=== PATIENT | male | born 1955 | race Caucasian/White ===

== ENCOUNTER 2017-11-19 10:52 | Outpatient (CLI) | payer MEDICARE ==
[2017-11-19 12:39] LABS: #Basophils 0.1 thou/uL (0.0-0.2); #Eosinphils 0.2 thou/uL (0.0-0.7); #Lymphocytes 1.2 thou/uL (1.20-3.40); #Monocytes 0.8 thou/uL (0.11-0.59); #Neutrophils 5.9 thou/uL (1.40-6.50); %Basophils 0.8 % (0.0-1.0); %Lymphocytes 14.3 % (21.0-51.0); %Monocytes 10.1 % (0.0-10.0); %Neutrophils 72.7 % (42.0-75.0); Hemoglobin 15.2 g/dL (14.0-18.0); Mean Corpuscular HGB CONC 32.9 g/dL (32.0-36.0); Mean Corpuscular Hemoglobin 30.9 pg (27.0-31.0); Mean Corpuscular Volume 93.9 fl (80.0-94.0); Mean Platelet Volume 9.4 fL (7.4-10.4); Platelet Count 291 thou/uL (130-400); RBC Distribution Width 11.8 % (11.5-14.5); Red Blood Cell (RBC) Count 4.92 mill/uL (4.70-6.10); White Blood Cell (WBC) Count 8.1 thou/uL (4.8-10.8)
[2017-11-19 13:02] LABS: Anion Gap 12 mmol/L (10-20); BUN (Urea Nitrogen) 11 mg/dL (8.4-25.7); Calc. Creatinine Clearance 0 mL/min (70-130); Calcium 9.4 mg/dL (7.8-10.44); Carbon Dioxide 24 mmol/L (23-31); Chloride 104 mmol/L (98-107); Estimated GFR-MDRD 78; Glucose 128 mg/dL (80-115); Potassium 4.1 mmol/L (3.5-5.1); Sodium 136 mmol/L (136-145)
--- NOTE | 2017-11-21 18:32 | EKG ---
Test Reason : Blood Pressure : / mmHG Vent. Rate : 073 BPM Atrial Rate : 073 BPM P-R Int : 168 ms QRS Dur : 086 ms QT Int : 406 ms P-R-T Axes : 025 020 029 degrees QTc Int : 447 ms Normal sinus rhythm Possible Anterior infarct , age undetermined Abnormal ECG No previous ECGs available Confirmed by CHRISTY LOYOLA, DR. Chaparro ([id number]) on 11/21/2017 6:32:31 PM Referred By: TODD Confirmed By:DR. Shankar HARRISON MD
== END 2017-11-19 10:53 | disposition home or self-care (01) ==
LOC: LABBT 10:52
PROVIDERS: ATTEND Surgery
DX: Z01.818 Encounter for other preprocedural examination (principal); K60.3 Anal fistula
CPT/HCPCS: 80048; 85025; 93005; 93010

== ENCOUNTER 2017-11-20 09:33 | Day surgery (SDC) | payer MEDICARE ==
[2017-11-19 11:10] VITALS: BMI 28.8
[2017-11-20] MEDS ORDERED: Lidocaine 2% Jelly 5 ML TUBE ONE (10:45)
[2017-11-20] MEDS ORDERED: Bupivacaine/Epinephrine 0.25% 30 ML VIAL ONE (10:45)
[2017-11-20] MEDS ORDERED: Fentanyl 250 MCG/5 ML VIAL ONE (12:13)
[2017-11-20] MEDS ORDERED: Midazolam HCl 2 mg/2 ml Vial ONE (12:13)
--- NOTE | 2017-11-20 17:07 | OP ---
DATE OF PROCEDURE: 11/20/2017 PREOPERATIVE DIAGNOSIS: [id number]. POSTOPERATIVE DIAGNOSIS: [id number]. PROCEDURE PERFORMED: Fistulotomy with Seton placement. SURGEON: Deandre Ochoa ANESTHESIA: General. ESTIMATED BLOOD LOSS: Minimal. COMPLICATIONS: None. SPECIMEN: None. FINDINGS: Transsphincteric fistula. TECHNIQUE: The patient was taken to the operating room and placed supine on the table. After genera l anesthetic was obtained, he was placed in the lithotomy position. His perineum is prepped and drap ed in a sterile fashion. Local anesthetic was infiltrated at the external drain and site. Fistula p robe used to probe from the external to the internal opening. The internal opening is right at the 6 o'clock position. The external opening is approximately at the 4 o'clock position. Unfortunately, the fistula goes behind the sphincter muscle. Decision is made to place a cutting Seton. An 0 silk suture is wrapped around and tied to the inside portion of the probe, pulled out the outside hole and tied down in a loop. This was tied down fairly snug on the outside of the fistulous opening. This will slowly erode through the muscle and allow it to heal. There is no bleeding. Local anesthetic i s applied. The patient was en route to recovery in stable condition. All instrument counts, needle counts, lap counts were correct.
== END 2017-11-20 14:15 | disposition home or self-care (01) ==
LOC: SDC 09:33
PROVIDERS: ATTEND Surgery
PROC: 0HB9XZZ Excision of Perineum Skin, External Approach (ICD-10-PCS; principal; 2017-11-20)
DX: K60.3 Anal fistula (principal); Z88.8 Allergy status to other drugs, medicaments and biological substances; Z79.84 Long term (current) use of oral hypoglycemic drugs; Z79.899 Other long term (current) drug therapy
CPT/HCPCS: J2250; J3010; Q9968

== ENCOUNTER 2018-01-20 08:13 | Outpatient (CLI) | payer MEDICARE ==
[2018-01-20 09:33] LABS: Anion Gap 13 mmol/L (10-20); BUN (Urea Nitrogen) 7 mg/dL (8.4-25.7); Calc. Creatinine Clearance 0 mL/min (70-130); Calcium 9.8 mg/dL (7.8-10.44); Carbon Dioxide 28 mmol/L (23-31); Chloride 106 mmol/L (98-107); Estimated GFR-MDRD 86; Glucose 102 mg/dL (80-115); Potassium 4.7 mmol/L (3.5-5.1); Sodium 142 mmol/L (136-145)
[2018-01-20 09:38] LABS: #Basophils 0.1 thou/uL (0.0-0.2); #Eosinphils 0.2 thou/uL (0.0-0.7); #Lymphocytes 1.2 thou/uL (1.20-3.40); #Monocytes 0.7 thou/uL (0.11-0.59); #Neutrophils 6.8 thou/uL (1.40-6.50); %Basophils 0.6 % (0.0-1.0); %Eosinophils 1.7 % (0.0-10.0); %Lymphocytes 13.4 % (21.0-51.0); %Monocytes 7.8 % (0.0-10.0); %Neutrophils 76.4 % (42.0-75.0); Mean Corpuscular HGB CONC 32.6 g/dL (32.0-36.0); Mean Corpuscular Volume 92.1 fl (80.0-94.0); Mean Platelet Volume 8.6 fL (7.4-10.4); Platelet Count 314 thou/uL (130-400); RBC Distribution Width 11.9 % (11.5-14.5); White Blood Cell (WBC) Count 8.8 thou/uL (4.8-10.8)
== END 2018-01-20 08:14 | disposition home or self-care (01) ==
LOC: LABBT 08:13
PROVIDERS: ATTEND Surgery
DX: Z01.812 Encounter for preprocedural laboratory examination (principal); K60.3 Anal fistula
CPT/HCPCS: 80048; 85025

== ENCOUNTER 2018-01-21 08:03 | Day surgery (SDC) | payer MEDICARE ==
[2018-01-20 08:45] VITALS: BMI 29.5
[2018-01-21] MEDS ORDERED: Lidocaine 2% Jelly 5 ML TUBE ONE (09:01)
[2018-01-21] MEDS ORDERED: Bupivacaine/Epinephrine 0.25% 30 ML VIAL ONE (09:01)
[2018-01-21] MEDS ORDERED: Fentanyl 100 MCG/2 ML VIAL ONE ×2 (09:02→10:42)
[2018-01-21] MEDS ORDERED: CEFAZOLIN/Water 2 GM/20 ML SYRINGE ONE (09:06)
[2018-01-21] MEDS ORDERED: cefOXitin 2 GM VIAL ONE (09:07)
[2018-01-21] MEDS ORDERED: Sodium Chloride 0.9% 100 ML ONE (09:07)
--- NOTE | 2018-01-21 10:35 | OP ---
DATE OF PROCEDURE: 01/21/2018 PREOPERATIVE DIAGNOSIS: Anal fistula, transsphincteric. POSTOPERATIVE DIAGNOSIS: Anal fistula, transsphincteric. PROCEDURES PERFORMED: Staged fistulotomy with Seton placement for transsphincteric fistula. SURGEON: Bayron Ochoa M.D. ANESTHESIA: General. ESTIMATED BLOOD LOSS: Minimal. COMPLICATIONS: None. SPECIMEN: None. FINDINGS: The fistula is not quite as long to the perianal skin, but it still is transsphincteric, S eton is replaced and tightened. TECHNIQUE: The patient was taken to the operating room and placed supine on the table. After genera l anesthetic was obtained, he was placed in lithotomy position. Perineum area was prepped and draped in a sterile fashion. Previously placed Seton was used to place a fistula probe from outside to ins michael opening. The anal mucosa was opened on top of it. The trans-sphincter was still involved with t he fistula tract, so decision was made to replace the 0 silk suture. The old suture removed. A new silk was placed and it was tightened down tied against the exposed sphincter muscle. Meticulous hemo stasis obtained and anal canal was packed with Gelfoam and lidocaine jelly. The patient went to [facility] in stable condition. All sponge counts, needle counts, and lap counts are correct.
[2018-01-21] MEDS ORDERED: Metoclopramide HCl 10 MG/2 ML VIAL ONE (13:21)
[2018-01-21] MEDS ORDERED: Ketorolac Tromethamine 30 MG/ML VIAL ONE (13:21)
[2018-01-21] MEDS ORDERED: PROPOFOL 200 MG/20 ML VIAL ONE (13:21)
[2018-01-21] MEDS ORDERED: Dexamethasone 20 MG/5 ML VIAL ONE (13:21)
[2018-01-21] MEDS ORDERED: Ondansetron HCl/PF 4 MG/2 ML Vial ONE (13:21)
[2018-01-21] MEDS ORDERED: diphenhydrAMINE 50 MG/ML VIAL ONE (13:21)
[2018-01-21] MEDS ORDERED: Lidocaine 1% PF 5 ML VIAL ONE (13:21)
== END 2018-01-21 11:51 | disposition home or self-care (01) ==
LOC: SDC 08:03
PROVIDERS: ATTEND Surgery
PROC: 0DQQXZZ Repair Anus, External Approach (ICD-10-PCS; principal; 2018-01-21)
DX: K60.3 Anal fistula (principal); F32.9 Major depressive disorder, single episode, unspecified; F41.9 Anxiety disorder, unspecified; E78.5 Hyperlipidemia, unspecified; E11.51 Type 2 diabetes mellitus with diabetic peripheral angiopathy without gangrene; I11.9 Hypertensive heart disease without heart failure; F17.200 Nicotine dependence, unspecified, uncomplicated; Z86.73 Personal history of transient ischemic attack (TIA), and cerebral infarction without residual deficits; Z79.82 Long term (current) use of aspirin; Z79.84 Long term (current) use of oral hypoglycemic drugs; Z79.899 Other long term (current) drug therapy; Z88.8 Allergy status to other drugs, medicaments and biological substances
CPT/HCPCS: 96374; J0694; J3010; J7050

== ENCOUNTER 2018-04-15 11:57 | Outpatient (CLI) | payer MEDICARE ==
[2018-04-15 14:03] LABS: Bilirubin Negative (Negative); Blood, Urine Negative (Negative); Clarity CLEAR (Clear); Glucose, Urine (Dipstick) Negative (Negative); Leukocyte Negative (Negative); Nitrite Negative (Negative); Protein, Urine (Dipstick) Negative (Neg-Trace); Specific Gravity, Urine 1.005 (1.002-1.036); Urobilinogen 0.2 mg/dL (0.2-1.0)
[2018-04-15 14:05] LABS: Bacteria/HPF None Seen HPF (None Seen); Hyaline Casts/LPF 0-3 HYALINE CAST LPF (0-3 Hyaline); Pathc Cast-AUWi Flag 0.14 (0-2.49); RBC/HPF 0-3 HPF (0-3); Squamous Epithelial None Seen HPF (0-3); WBC/HPF None Seen HPF (0-3)
--- NOTE | 2018-04-16 06:19 | EKG ---
Test Reason : Blood Pressure : / mmHG Vent. Rate : 065 BPM Atrial Rate : 065 BPM P-R Int : 176 ms QRS Dur : 086 ms QT Int : 450 ms P-R-T Axes : 030 040 018 degrees QTc Int : 468 ms Normal sinus rhythm Possible Anterior infarct (cited on or before 15-APR-2018) vs poor R wave progression Abnormal ECG When compared with ECG of 19-NOV-2017 10:40, No significant change was found Confirmed by YAW FLORES ([id number]) on 04/16/2018 6:18:56 AM Referred By: DARRYL Confirmed By:YAW FLORES
== END 2018-04-15 11:58 | disposition home or self-care (01) ==
LOC: LABBT 11:57
PROVIDERS: ATTEND Orthopaedic Surgery
DX: Z01.818 Encounter for other preprocedural examination (principal); M17.11 Unilateral primary osteoarthritis, right knee; M17.12 Unilateral primary osteoarthritis, left knee
CPT/HCPCS: 81001; 87081; 93005; 93010

== ENCOUNTER 2018-04-26 05:34 | Inpatient (IN) | payer MEDICARE ==
[2018-04-26] MEDS ORDERED: CEFAZOLIN/Water 2 GM/20 ML SYRINGE ONE (06:05)
[2018-04-26] MEDS ORDERED: Sodium Chloride 0.9% 100 ML ONE (06:05)
[2018-04-26] MEDS ORDERED: Fentanyl 250 MCG/5 ML VIAL ONE (06:11)
[2018-04-26] MEDS ORDERED: Vancomycin HCl 1.5 GM in Sodium Chloride 0.9% 250 ML 300 ML IVPB SCH ×2 (06:15→20:00)
[2018-04-26] MEDS ORDERED: Fentanyl 100 MCG/2 ML VIAL ONE (06:30)
[2018-04-26] MEDS ORDERED: Midazolam HCl 2 mg/2 ml Vial ONE (06:30)
[2018-04-26] MEDS ORDERED: Bupivacaine HCl 0.5%/Epinephrine 1:200,000/PF 30 ml Vial ONE (06:31)
[2018-04-26] MEDS ORDERED: Lidocaine 1% (PF) 30 ML VIAL ONE (06:37)
[2018-04-26] MEDS ORDERED: Bupivacaine PF 0.5% 30 ML VIAL ONE (06:37)
[2018-04-26] MEDS ORDERED: methylPREDNISolone Acetate 40 mg/ml Vial ONE (06:52)
[2018-04-26] MEDS ORDERED: Zolpidem Tartrate 5 MG TAB PO PRN ×2 (07:40→09:07)
[2018-04-26] MEDS ORDERED: traMADol HCl 50 MG TAB PO PRN ×3 (07:40→09:07)
[2018-04-26] MEDS ORDERED: Promethazine HCl 25 MG/ML VIAL IM PRN ×2 (07:40→08:51)
[2018-04-26] MEDS ORDERED: Ropivacaine HCl/PF 250 ML in Premix Bag 1 BAG NERVE BLCK SCH (07:40)
[2018-04-26] MEDS ORDERED: Fentanyl 100 MCG/2 ML VIAL IV PRN (07:40)
[2018-04-26] MEDS ORDERED: Ondansetron HCl/PF 4 MG/2 ML Vial IVP PRN ×3 (07:40→09:07)
[2018-04-26] MEDS ORDERED: HYDROcodone/Acetaminophen 10/325 mg Tablet PO PRN (07:40)
[2018-04-26] MEDS ORDERED: Promethazine HCl 25 MG/ML VIAL SLOW IVP PRN (08:51)
[2018-04-26] MEDS ORDERED: Acetaminophen 325 MG TAB PO PRN (09:07)
[2018-04-26] MEDS ORDERED: Tranexamic Acid 1,000 MG in Sodium Chloride 0.9% 100 ML IVPB SCH (09:15)
--- NOTE | 2018-04-26 09:33 | OP ---
DATE OF PROCEDURE: 04/26/2018 PREOPERATIVE DIAGNOSIS: Bilateral knee osteoarthrosis, right worse than left. POSTOPERATIVE DIAGNOSIS: Bilateral knee osteoarthrosis, right worse than left. PROCEDURES PERFORMED: 1. Right total knee replacement using [employer] pinless navigation. 2. Left knee corticosteroid injection. SURGEON: Alfredo Claros M.D. SCREW DRIVER OPERATOR: Greg Etienne PA-C. BLOOD LOSS: Minimal. COMPLICATIONS: None. ANESTHESIA: He had general anesthetic. He also had preoperative blocks. DISPOSITION: He did go to the recovery room in stable condition. IMPLANTS: To the right knee is a Triathlon total knee system, the femur was a size 6 cruciate retain ing. We used a size 5 universal tibial baseplate. We used a 5 x 9 mm CS X3 tibial bearing and an as ymmetric 35 x 10 X3 patella. CONDITION: He did go again recovery in stable condition. INDICATIONS: A 62-year-old active male who has significant issues and problems with bilateral knee a rthritis. At this time, he has failed nonoperative treatment and wished to have his right knee repla emilie and the left knee injected. PROCEDURE IN DETAIL: After above consent forms were explained and signed, he was taken back to the o perating room and at this time was given general anesthetic. Once anesthesia was appropriate, the le ft knee was cleaned off with alcohol and 8 mL mixture of 80 mg Depo-Medrol and local was injected int o the left knee without any complication. A Band-Aid was applied. Midline incision was made with a 1 0 blade down through the skin and subcutaneous tissue. Bovie electrocautery was used to coagulate any brisk venous bleeding. A new blade was used to make a medial parapatellar arthrotomy. Small subperio steal release was performed medially and excess fat pad was removed. The knee was flexed up to gain a ccess to the femur. The femur was navigated and distal femoral resection was made. Epicondylar access was used to align our sizing jig and this was pinned in place. We sized our femur to be a size 6 cru ciate retaining 4:1 cutting block was applied and pinned. Anterior and posterior chamfer cuts were th en made. We navigated out our proximal tibia and made our proximal tibial resection. Spreaders were u sed to remove any posterior osteophytes off the back of the femur as well as remaining meniscal tissu e. A long alignment robert was then used to achieve correct rotation of our tibial baseplate and a size 5 universal was chosen. This was pinned in place. We trialed the polyethylene and a 5 x 9 mm CS X3 ti bial bearing polyethylene gave us full extension and good stability throughout range of motion. Two t owel clips and a saw were used to cut our patella. Three lug nuts were drilled and an asymmetric 35 x 10 X3 patella was trialed which sat nicely in the trochlear groove. We then drilled our femur and pu nched our tibia. All components were removed. The knee was thoroughly irrigated and dried. Cement was mixed into the cement gun on the back table. Components were then placed. The knee was held out in f ull extension until the cement had dried. All excess bone cement was removed. Multiple #2 Vicryl sti tches as well as a Quill was used to close our extensor mechanism. 0 Quill followed by a running [employer] [facility] was then used to close the skin. Surgicel glue was then used on the skin. Once this had dried, s oft tissue dressing was applied to the limb, tourniquet was let down, and the toes pinked up nicely. The patient was then awakened and taken to the Recovery Room in stable condition. All counts were co rrect at the end of the case. The patient did receive preoperative IV antibiotics. The patient was i njected with Exparel for postoperative pain relief.
[2018-04-26 11:17] VITALS: BMI 29.5
[2018-04-26] MEDS: Sodium Chloride 0.9% 1,000 ML IV SCH ×2 (11:32→18:05)
[2018-04-26] MEDS: CEFAZOLIN/Water 2 GM/20 ML SYRINGE SLOW IVP SCH ×2 (14:47→22:34)
[2018-04-26] MEDS ORDERED: Dextrose 50% Abboject 50 ML SYRINGE SLOW IVP PRN (15:09)
[2018-04-26] MEDS ORDERED: HumaLOG 300 UNITS/3 ML VIAL SC PRN (15:09)
[2018-04-26] MEDS ORDERED: Dextrose 5% in Water 1,000 ML IV PRN (15:09)
[2018-04-26] MEDS: metFORMIN 500 MG TAB PO SCH (17:09)
[2018-04-26] MEDS: Glimepiride 4 MG TAB PO SCH (17:09)
--- NOTE | 2018-04-26 19:43 | CON ---
DATE OF CONSULTATION: 04/26/2018 CONSULTING PHYSICIAN: Dr. Claros. REASON FOR CONSULTATION: Perioperative medical management. HISTORY OF PRESENT ILLNESS: This patient is a 62-year-old male who has significant degenerative join t disease of both knees. His right is seemingly worse than the left. The patient reports that he hunter s been aggressively following the manual for preoperative management and has been trying to improve t he strength and flexibility of that knee and at this point, feels like he is doing very well immediat toni postoperatively. He is not having any significant pain. He has no other complaints. PAST MEDICAL HISTORY: Notable for degenerative joint disease. The patient has had some in both knee s. He has diabetes mellitus, has some attention deficit disorder, erectile dysfunction, history of d epression, history of anxiety disorder, history of hypertension, hyperlipidemia. PAST SURGICAL HISTORY: Cataract right eye, anal fistulectomy 10/2016, cataractectomy 2017. SOCIAL HISTORY: The patient is a nonsmoker and nondrinker. He is retired from construction. He is and his is around here. FAMILY HISTORY: Father of throat cancer. Mother of breast cancer. She also had a history of diabetes. ALLERGIES: INVOKANA. CURRENT MEDICATIONS: At home includes Xanax 0.5 every day, Celexa 20 mg every day, aspirin 1 p.o. da constantine, donepezil 10 mg at bedtime, metformin 500 mg b.i.d., and glimepiride 4 mg b.i.d. PHYSICAL EXAMINATION: VITAL SIGNS: Temperature is 97.9, pulse 108, respirations 18, O2 sat 94% on room air, BP 138/96. GENERAL APPEARANCE: Age appropriate male. He is in no distress. He is awake, alert, oriented, plea nathan and cooperative. HEENT: Pupils are symmetric, but constricted at 1-2 mm. He has no OP lesions. NECK: Supple and symmetric. HEART: Regular rate and rhythm without murmurs, gallops or rubs. LUNGS: Clear to auscultation bilaterally with good chest wall expansion and air exchange. ABDOMEN: Soft, nontender, nondistended, positive bowel sounds. No masses and no organomegaly. EXTREMITIES: Warm and dry. The right lower extremity has a postop brace. He has good peripheral pu lses distal to that. LABORATORY DATA: Laboratory data from 03/2018, white count was 8.6, hemoglobin 16.2, platelets 273, INR 1.1. Chemistry is notable for A1c of 6.3, glucose 138, bilirubin was 1.9, AST 35. Remainder of the CMP was normal. UA was negative. ASSESSMENT AND PLAN: 1. Degenerative joint disease status post right knee arthroplasty and left knee steroid injection. The patient seems to be doing extremely well postoperatively. He worked diligently to get himself pr epared for the surgery and appears to be paying off for him now. 2. Diabetes mellitus. The patient can resume his usual home oral medications. We will order Accu-C heks and sliding scale, just as a safety net for hyperglycemia. 3. History of anxiety and depression. Continue with Xanax and Celexa.
[2018-04-26] MEDS: Aspirin 81 mg Enteric Coated Tablet PO SCH (20:18)
[2018-04-26] MEDS: HYDROcodone/Acetaminophen 10/325 mg Tablet PO PRN (20:21)
[2018-04-26] MEDS ORDERED: Donepezil HCl 10 MG TAB PO SCH (21:00)
[2018-04-27] MEDS: Sodium Chloride 0.9% 1,000 ML IV SCH (04:01)
[2018-04-27] MEDS: HYDROcodone/Acetaminophen 10/325 mg Tablet PO PRN (05:37)
[2018-04-27 06:04] LABS: Hemoglobin 13.7 g/dL (14.0-18.0); Mean Corpuscular HGB CONC 33.1 g/dL (32.0-36.0); Mean Corpuscular Hemoglobin 30.4 pg (27.0-31.0); Mean Corpuscular Volume 91.7 fL (78.0-98.0); Mean Platelet Volume 8.6 fL (7.4-10.4); Platelet Count 272 thou/uL (130-400); White Blood Cell (WBC) Count 17.4 thou/uL (4.8-10.8)
[2018-04-27] MEDS ORDERED: Ferrous Gluconate 324 MG TAB PO SCH (08:00)
[2018-04-27] MEDS ORDERED: ALPRAZolam 0.25 MG TAB PO SCH (09:00)
[2018-04-27] MEDS ORDERED: Multivitamin W/ Minerals 1 TAB PO SCH (09:00)
[2018-04-27] MEDS ORDERED: Senokot S 8.6-50 MG TAB PO SCH (09:00)
[2018-04-27] MEDS ORDERED: Citalopram 20 MG TAB PO SCH (09:00)
[2018-04-27] MEDS ORDERED: CeleCOXIB 100 MG CAP PO SCH (09:00)
[2018-04-27] MEDS: metFORMIN 500 MG TAB PO SCH (09:45)
[2018-04-27] MEDS: Aspirin 81 mg Enteric Coated Tablet PO SCH (09:45)
[2018-04-27] MEDS: Glimepiride 4 MG TAB PO SCH (09:52)
[2018-04-27 11:50] VITALS: BP 121/78; TEMP 98.7
[2018-04-27] MEDS ORDERED: Ropivacaine 0.2% 550 ML 550 ML NERVE BLCK SCH (13:15)
== END 2018-04-27 14:53 | disposition home health service (06) | DRG 470 ==
LOC: SDC 05:34 → SJJU 10:38
PROVIDERS: ADMIT Orthopaedic Surgery; ATTEND Orthopaedic Surgery
PROC: 0SRC0J9 Replacement of Right Knee Joint with Synthetic Substitute, Cemented, Open Approach (ICD-10-PCS; principal; 2018-04-26)
DX: M17.0 Bilateral primary osteoarthritis of knee (principal); E11.9 Type 2 diabetes mellitus without complications; I10 Essential (primary) hypertension; F98.8 Other specified behavioral and emotional disorders with onset usually occurring in childhood and adolescence; F32.9 Major depressive disorder, single episode, unspecified; F41.9 Anxiety disorder, unspecified; E78.5 Hyperlipidemia, unspecified; N52.9 Male erectile dysfunction, unspecified; Z88.8 Allergy status to other drugs, medicaments and biological substances; Z79.899 Other long term (current) drug therapy; Z79.84 Long term (current) use of oral hypoglycemic drugs; Z79.82 Long term (current) use of aspirin; I11.9 Hypertensive heart disease without heart failure
CPT/HCPCS: 36415; 36416; 85027; A4306; C1713; C1776; G8978-GP-CK; G8979-GP-CI; J0670; J1030; J2001; J2250; J2795; J3010; J3370; J7050; S0020

== ENCOUNTER 2018-07-20 09:21 | Outpatient (CLI) | payer MEDICARE ==
[2018-07-20 10:58] LABS: #Eosinphils 0.2 thou/uL (0.0-0.7); #Lymphocytes 1.4 thou/uL (1.20-3.40); #Monocytes 0.8 thou/uL (0.11-0.59); #Neutrophils 6.9 thou/uL (1.40-6.50); %Basophils 0.4 % (0.0-1.0); %Eosinophils 1.9 % (0.0-10.0); %Lymphocytes 14.6 % (21.0-51.0); %Monocytes 9.1 % (0.0-10.0); Hemoglobin 15.9 g/dL (14.0-18.0); Mean Corpuscular HGB CONC 32.1 g/dL (32.0-36.0); Mean Corpuscular Hemoglobin 29.6 pg (27.0-31.0); Mean Corpuscular Volume 92.4 fL (78.0-98.0); Mean Platelet Volume 9.3 fL (7.4-10.4); Platelet Count 311 thou/uL (130-400); RBC Distribution Width 12.2 % (11.5-14.5); Red Blood Cell (RBC) Count 5.38 mill/uL (4.70-6.10); White Blood Cell (WBC) Count 9.3 thou/uL (4.8-10.8)
[2018-07-20 11:10] LABS: Prothrombin Time 13.7 SEC (12.0-14.7)
[2018-07-20 11:13] LABS: Anion Gap 12 mmol/L (10-20); BUN (Urea Nitrogen) 9 mg/dL (8.4-25.7); Calc. Creatinine Clearance 0 mL/min (70-130); Calcium 9.9 mg/dL (7.8-10.44); Carbon Dioxide 28 mmol/L (23-31); Chloride 104 mmol/L (98-107); Estimated GFR-MDRD 90; Glucose 119 mg/dL (80-115); Potassium 4.6 mmol/L (3.5-5.1); Sodium 139 mmol/L (136-145)
[2018-07-20 11:38] LABS: Bilirubin Negative (Negative); Blood, Urine Negative (Negative); Clarity CLEAR (Clear); Glucose, Urine (Dipstick) Negative (Negative); Leukocyte Negative (Negative); Nitrite Negative (Negative); Protein, Urine (Dipstick) Negative (Neg-Trace)
[2018-07-20 12:00] LABS: Bacteria/HPF None Seen HPF (None Seen); Hyaline Casts/LPF NONE SEEN LPF (0-3 Hyaline); RBC/HPF None Seen HPF (0-3); Squamous Epithelial 0-3 HPF (0-3); WBC/HPF None Seen HPF (0-3)
== END 2018-07-20 09:22 | disposition home or self-care (01) ==
LOC: LABBT 09:21
PROVIDERS: ATTEND Orthopaedic Surgery
DX: Z01.818 Encounter for other preprocedural examination (principal); M17.12 Unilateral primary osteoarthritis, left knee
CPT/HCPCS: 80048; 81001; 85025; 85610; 86850; 86900; 86901; 87081; 93005; 93010

== ENCOUNTER 2018-07-26 06:40 | Inpatient (IN) | payer MEDICARE ==
[2018-07-20 09:38] VITALS: BMI 29.6
[2018-07-26] MEDS ORDERED: CEFAZOLIN 2 GM/50 ML BAG ONE (07:06)
[2018-07-26] MEDS ORDERED: Sodium Chloride 0.9% 100 ML ONE (07:06)
[2018-07-26] MEDS ORDERED: Tranexamic Acid 1,000 MG/10 ML VIAL ONE ×2 (07:06→12:05)
[2018-07-26] MEDS ORDERED: Vancomycin HCl 1.5 GM in Sodium Chloride 0.9% 250 ML 300 ML IVPB SCH ×2 (07:15→19:00)
[2018-07-26] MEDS ORDERED: Fentanyl 100 MCG/2 ML VIAL ONE ×4 (07:28→10:37)
[2018-07-26] MEDS ORDERED: Midazolam HCl 2 mg/2 ml Vial ONE ×2 (07:28→09:19)
[2018-07-26] MEDS ORDERED: Bupivacaine PF 0.5% 30 ML VIAL ONE (09:14)
[2018-07-26] MEDS ORDERED: traMADol HCl 50 MG TAB PO PRN ×3 (09:39→11:40)
[2018-07-26] MEDS ORDERED: HYDROcodone/Acetaminophen 10/325 mg Tablet PO PRN (09:39)
[2018-07-26] MEDS ORDERED: Ropivacaine HCl/PF 250 ML in Premix Bag 1 BAG NERVE BLCK SCH (09:39)
[2018-07-26] MEDS ORDERED: Promethazine HCl 25 MG/ML VIAL IM PRN ×2 (09:39→11:40)
[2018-07-26] MEDS ORDERED: Ketorolac Tromethamine 30 MG/ML VIAL IVP PRN (09:39)
[2018-07-26] MEDS ORDERED: Zolpidem Tartrate 5 MG TAB PO PRN ×2 (09:39→11:40)
[2018-07-26] MEDS ORDERED: Ondansetron PF 4 MG/2 ML Vial IVP PRN ×2 (09:39→11:40)
[2018-07-26] MEDS ORDERED: Fentanyl 100 MCG/2 ML VIAL SLOW IVP PRN (09:39)
[2018-07-26] MEDS ORDERED: Acetaminophen 325 MG TAB PO PRN (11:40)
[2018-07-26] MEDS ORDERED: diphenhydrAMINE 25 MG CAP PO PRN (11:40)
[2018-07-26] MEDS ORDERED: Tranexamic Acid 1,000 MG in Sodium Chloride 0.9% 100 ML IVPB SCH (11:45)
[2018-07-26] MEDS ORDERED: Bupivacaine 0.25% HCL 30 ML VIAL ONE (12:15)
[2018-07-26] MEDS ORDERED: Ropivacaine 0.5% HCl/PF (150 MG/30 ML VIAL) ONE (12:15)
--- NOTE | 2018-07-26 12:36 | OP ---
PREOPERATIVE DIAGNOSIS: Left knee osteoarthrosis. POSTOPERATIVE DIAGNOSIS: Left knee osteoarthrosis. PROCEDURE PERFORMED: Left total knee replacement using [employer] pinless navigation. SURGEON: Alfredo Claros M.D. MARKETING UNDERWRITER: Enrrique Lanza PA-C. BLOOD LOSS: Minimal. ANESTHETIC: The patient did have a general anesthetic as well as a local knee block. CONDITION: He did go to the recovery room in stable condition. IMPLANTS: To the left knee is Triathlon total knee system, the femur was a size 6 cruciate retaining femur. We used a size 5 universal tibial baseplate. We used a 5 x 9 mm CS X3 tibial bearing and an asymmetric 29 x 9 X3 patella. INDICATIONS: A 63-year-old male who had his right knee replaced approximately 4 months ago and at th is time he wants his left knee replaced as well. PROCEDURE IN DETAIL: After all appropriate consent forms were explained and signed, the patient was taken back to the Operating Room and at this time was given general anesthetic. Once the level of an esthesia was appropriate, a well-padded tourniquet was placed on the left leg and the leg was then pr epped and draped in standard surgical fashion. The limb was exsanguinated and tourniquet taken up to 300 mmHg. Midline incision was made with a 10 blade down through the skin and subcutaneous tissue. Bovie electrocautery was used to coagulate any brisk venous bleeding. A new blade was used to make a medial parapatellar arthrotomy. Small subperiosteal release was performed medially and excess fat pad was removed. The knee was flexed up to gain access to the femur. The femur was navigated and di stal femoral resection was made. Epicondylar access was used to align our sizing jig and this was pi nned in place. We sized our femur to be a size 6 cruciate retaining femur, 4:1 cutting block was ward lied and pinned. Anterior and posterior chamfer cuts were then made. We navigated out our proximal tibia and made our proximal tibial resection. Spreaders were used to remove any posterior osteophyte s off the back of the femur as well as remaining meniscal tissue. A long alignment robert was then used to achieve correct rotation of our tibial baseplate and a size 5 universal tibial baseplate was chos en. This was pinned in place. We trialed the polyethylene and a 5 x 9 mm CS X3 tibial bearing polye thylene gave us full extension and good stability throughout range of motion. Two towel clips and a saw were used to cut our patella. Three lug nuts were drilled and 29 x 9 X3 patella was trialed whic h sat nicely in the trochlear groove. We then drilled our femur and punched our tibia. All componen ts were removed. The knee was thoroughly irrigated and dried. Cement was mixed into the cement gun o n the back table. Components were then placed. The knee was held out in full extension until the wanda ent had dried. All excess bone cement was removed. Multiple #2 Vicryl stitches as well as a Quill w as used to close our extensor mechanism. 0 Quill followed by a running Monoderm was then used to modesto se the skin. Surgicel glue was then used on the skin. Once this had dried, soft tissue dressing was applied to the limb, tourniquet was let down, and the toes pinked up nicely. The patient was then a wakened and taken to the Recovery Room in stable condition. All counts were correct at the end of e case. The patient did receive preoperative IV antibiotics. The patient was injected with Exparel for postoperative pain relief.
[2018-07-26] MEDS: HYDROcodone/Acetaminophen 10/325 mg Tablet PO PRN ×3 (13:40→21:55)
[2018-07-26] MEDS ORDERED: Ondansetron PF 4 MG/2 ML Vial ONE (13:59)
[2018-07-26] MEDS ORDERED: Lidocaine 1% PF 5 ML VIAL ONE (13:59)
[2018-07-26] MEDS ORDERED: Ketorolac Tromethamine 30 MG/ML VIAL ONE (13:59)
[2018-07-26] MEDS ORDERED: PROPOFOL 200 MG/20 ML VIAL ONE (13:59)
[2018-07-26] MEDS ORDERED: ePHEDrine/0.9% NaCl/PF SYRINGE 50 mg/10 ml ONE (13:59)
[2018-07-26] MEDS ORDERED: PHENYLEPHRINE-NS 100 MCG/ML 10 ML SYRINGE ONE (13:59)
[2018-07-26] MEDS: Sodium Chloride 0.9% 1,000 ML IV SCH ×2 (15:27→21:40)
[2018-07-26] MEDS: CEFAZOLIN 2 GM/50 ML BAG IVPB SCH ×2 (15:28→22:00)
[2018-07-26] MEDS ORDERED: Dextrose 50% Abboject 50 ML SYRINGE SLOW IVP PRN (16:31)
[2018-07-26] MEDS ORDERED: HumaLOG 300 UNITS/3 ML VIAL SC PRN ×2 (16:31)
[2018-07-26] MEDS ORDERED: Dextrose 5% in Water 1,000 ML IV PRN (16:31)
[2018-07-26] MEDS ORDERED: hydrALAZINE 25 MG TAB PO PRN (16:39)
[2018-07-26] MEDS: metFORMIN 500 MG TAB PO SCH (17:07)
[2018-07-26] MEDS: Ferrous Gluconate 324 MG TAB PO SCH (19:49)
[2018-07-26] MEDS: Senokot S 8.6-50 MG TAB PO SCH (19:49)
[2018-07-26] MEDS: Glimepiride 4 MG TAB PO SCH (19:49)
[2018-07-26] MEDS ORDERED: Aspirin 81 mg Enteric Coated Tablet PO SCH (21:00)
[2018-07-26] MEDS ORDERED: Donepezil HCl 10 MG TAB PO SCH (21:00)
--- NOTE | 2018-07-26 22:30 | CON ---
DATE OF CONSULTATION: 07/26/2018 DATE OF ADMISSION: 07/26/2018 PRIMARY CARE PHYSICIAN: Ofelia Kwon M.D. REASON FOR CONSULTATION: Aid in medical management. HISTORY OF PRESENT ILLNESS: Mr. Jaffe is a very pleasant 63-year-old gentleman who has a history of hypertension and diabetes mellitus. He has a history of osteoarthritis of his knees and recently hunter d a right total knee replacement about 4 months ago. He had very good results with this and as a res ult, he has returned for a left knee replacement surgery. When I see the patient, he is postop and i s doing well. He denies having any significant pain. Currently, the pain in his knee is about a 4/1 0. He otherwise denies any chest pain or shortness of breath, no dizziness, no lightheadedness and h as no other medical complaints at this time. REVIEW OF SYSTEMS: All systems were reviewed and are negative except for that mentioned in the histo ry of present illness. PAST MEDICAL HISTORY: Significant for diabetes mellitus, type 2; attention deficit disorder; hyperte nsion; and hyperlipidemia. PAST SURGICAL HISTORY: He has had right eye cataract surgery as well as a fistulectomy. SOCIAL HISTORY: He is . He is a nonsmoker, nondrinker. FAMILY HISTORY: Significant for breast cancer and throat cancer. ALLERGIES: Include INVOKANA and BRIMONIDINE. CURRENT MEDICATIONS: Include Naprosyn 220 mg twice a day as needed, metformin 500 mg twice daily, gl imepiride 4 mg twice a day, donepezil 10 mg at bedtime, Celexa 20 mg daily, aspirin 81 mg daily, alpr azolam 0.5 mg daily. PHYSICAL EXAMINATION: GENERAL: He is alert and oriented. He appears to be in no acute distress. He is well-developed and well-nourished. VITAL SIGNS: Blood pressure was 135/90, heart rate 101, respiratory rate of 18, temperature is 96.9. HEENT: Pupils are equal, round, and reactive. Extraocular muscles are intact. His sclerae are anic teric. Throat: There is no erythema, no exudates. NECK: No adenopathy, no bruits. LUNGS: Clear to auscultation. There is no wheezing or rales, no rhonchi. CARDIOVASCULAR: He has a normal S1, S2. There is no S3 or S4. No murmurs, clicks, no rubs. ABDOMEN: Soft, it is nontender, nondistended. Positive for bowel sounds. There is no rebound, no g uarding, no organomegaly. EXTREMITIES: There is trace pedal edema. NEUROLOGIC: Neurologically, the exam is grossly nonfocal. LABORATORY DATA AND IMAGING: He had lab work done on 07/20/2018, which was reviewed and essentially negative. The CBC was negative. Chemistry panel also normal with a creatinine of 0.86. He also had an EKG at that time, which shows normal sinus rhythm without any ST wave changes. ASSESSMENT AND PLAN: This is a pleasant 63-year-old gentleman, who is admitted post left total knee replacement and is currently clinically stable. 1. With regards to diabetes mellitus, we will go ahead and restart his usual home medications as wel l as cover him with sliding scale insulin as needed. 2. Hypertension, currently is controlled. Again, home medications are to be restarted, which it thomason s not appear that he is on any medications for blood pressure. We will have hydralazine as needed. 3. Deep venous thrombosis prophylaxis with sequential compression devices. 4. Post left knee replacement, management per Orthopedic Surgery.
[2018-07-27] MEDS: HYDROcodone/Acetaminophen 10/325 mg Tablet PO PRN ×3 (04:24→14:21)
[2018-07-27 06:46] LABS: Hemoglobin 12.4 g/dL (14.0-18.0); Mean Corpuscular HGB CONC 33.7 g/dL (32.0-36.0); Mean Corpuscular Hemoglobin 31.2 pg (27.0-31.0); Mean Corpuscular Volume 92.7 fL (78.0-98.0); Mean Platelet Volume 9.4 fL (7.4-10.4); Platelet Count 241 thou/uL (130-400); RBC Distribution Width 11.9 % (11.5-14.5); Red Blood Cell (RBC) Count 3.97 mill/uL (4.70-6.10); White Blood Cell (WBC) Count 10.5 thou/uL (4.8-10.8)
[2018-07-27] MEDS: Senokot S 8.6-50 MG TAB PO SCH (07:38)
[2018-07-27] MEDS: Glimepiride 4 MG TAB PO SCH (07:38)
[2018-07-27] MEDS: Ferrous Gluconate 324 MG TAB PO SCH (07:38)
[2018-07-27] MEDS: metFORMIN 500 MG TAB PO SCH (07:38)
[2018-07-27] MEDS ORDERED: Citalopram 20 MG TAB PO SCH (09:00)
[2018-07-27] MEDS ORDERED: Aspirin 81 mg Enteric Coated Tablet PO SCH ×2 (09:00→21:00)
[2018-07-27] MEDS ORDERED: ALPRAZolam 0.25 MG TAB PO SCH (09:00)
[2018-07-27] MEDS ORDERED: Multivitamin W/ Minerals 1 TAB PO SCH (09:00)
[2018-07-27] MEDS: Sodium Chloride 0.9% 1,000 ML IV SCH ×2 (10:53→12:13)
[2018-07-27] MEDS ORDERED: Bupivacaine 0.5% 50 ML in Sodium Chloride 0.9% 50 ML NERVE BLCK SCH (13:54)
[2018-07-27] MEDS ORDERED: Ropivacaine 0.2% 550 ML 550 ML NERVE BLCK SCH (13:59)
[2018-07-27 16:18] VITALS: BP 149/85; TEMP 98.4
--- NOTE | 2018-07-27 18:03 | PDOC.PN ---
- Subjective Encounter Start Date: 07/27/18 Encounter Start Time: 14:05 Mr. Jaffe was seen today in follow-up of HTN and medical management following TKR. He currently is sitting up in a chair, and he has no complaints. - Objective MAR Reviewed: Yes Vital Signs & Weight: Vital Signs (12 hours) Temp Pulse Resp BP BP Pulse Ox 07/27/18 15:09 98.4 F 94 16 149/85 H 93 L 07/27/18 11:22 98.2 F 102 H 16 136/79 93 L 07/27/18 07:44 98.2 F 93 18 130/82 94 L Weight Admit Weight 195 lb 0.017 oz Weight 195 lb 0.017 oz I&O: 07/26/18 07/27/18 07/28/18 06:59 06:59 06:59 Intake Total 700 900 Output Total 1000 Balance 700 -100 Result Diagrams: 07/27/18 06:03 Additional Labs: Accuchecks 07/27/18 07/27/18 07/27/18 16:03 13:27 06:36 POC Glucose 164 H 196 H 124 H 07/26/18 20:31 POC Glucose 184 H Phys Exam - Physical Examination HEENT: PERRLA Respiratory: no wheezing, no rales, no rhonchi, clear to auscultation bilateral Cardiovascular: RRR, no significant murmur, no rub Gastrointestinal: soft, non-tender, no distention, positive bowel sounds Musculoskeletal: no edema Dx/Plan (1) Hypertension Code(s): I10 - ESSENTIAL (PRIMARY) HYPERTENSION Status: Chronic (2) Diabetes mellitus type 2 in nonobese Code(s): E11.9 - TYPE 2 DIABETES MELLITUS WITHOUT COMPLICATIONS Status: Chronic (3) Status post total left knee replacement Code(s): Z96.652 - PRESENCE OF LEFT ARTIFICIAL KNEE JOINT Status: Acute - Plan * HTN- blood pressure is controlled * DM- stable * Continue PT/OT.
== END 2018-07-27 17:01 | disposition home or self-care (01) | DRG 470 ==
LOC: SDC 06:40 → SJJU 11:41
PROVIDERS: ADMIT Orthopaedic Surgery; ATTEND Orthopaedic Surgery
PROC: 0SRD0J9 Replacement of Left Knee Joint with Synthetic Substitute, Cemented, Open Approach (ICD-10-PCS; principal; 2018-07-26)
DX: M17.12 Unilateral primary osteoarthritis, left knee (principal); E11.9 Type 2 diabetes mellitus without complications; I10 Essential (primary) hypertension; Z96.651 Presence of right artificial knee joint; E78.5 Hyperlipidemia, unspecified; Z88.8 Allergy status to other drugs, medicaments and biological substances; Z79.899 Other long term (current) drug therapy; Z79.84 Long term (current) use of oral hypoglycemic drugs; Z79.82 Long term (current) use of aspirin; Z86.73 Personal history of transient ischemic attack (TIA), and cerebral infarction without residual deficits; F90.9 Attention-deficit hyperactivity disorder, unspecified type; F32.9 Major depressive disorder, single episode, unspecified; F41.9 Anxiety disorder, unspecified
CPT/HCPCS: 36415; 36416; 85027; A4306; C1713; C1776; G8978-GP-CK; G8979-GP-CI; J1885; J2001; J2250; J2405; J2704; J2795; J3010; J3370; J3490; J7050; S0020

== ENCOUNTER 2018-10-14 06:42 | Day surgery (SDC) | payer MEDICARE ==
[2018-10-13 15:07] VITALS: BMI 28.8
[2018-10-14] MEDS ORDERED: Lidocaine 2% PF 5 ML VIAL ONE (07:30)
[2018-10-14] MEDS ORDERED: Bupivacaine HCl 0.5%/Epinephrine 1:200,000/PF 30 ml Vial ONE (07:30)
[2018-10-14] MEDS ORDERED: Lidocaine 2% Jelly 5 ML TUBE ONE (07:32)
[2018-10-14] MEDS ORDERED: cefOXitin Sodium/Dextrose,Iso 2 GM in Premix Bag 1 BAG IVPB SCH (07:45)
[2018-10-14] MEDS ORDERED: Fentanyl 100 MCG/2 ML VIAL ONE (07:47)
[2018-10-14] MEDS ORDERED: PHENYLEPHRINE-NS 100 MCG/ML 10 ML SYRINGE ONE (13:41)
[2018-10-14] MEDS ORDERED: PROPOFOL 200 MG/20 ML VIAL ONE (13:41)
[2018-10-14] MEDS ORDERED: Lidocaine 1% PF 5 ML VIAL ONE (13:41)
[2018-10-14] MEDS ORDERED: Rocuronium Bromide 10 MG/ML (10ML VIAL) ONE (13:41)
--- NOTE | 2018-10-15 12:52 | OP ---
DATE OF PROCEDURE: 10/14/2018 PREOPERATIVE DIAGNOSIS: History of [id number], staged repair. POSTOPERATIVE DIAGNOSIS: History of [id number], staged repair. PROCEDURE: Fistulotomy staged to completion. ANESTHESIA: General. ESTIMATED BLOOD LOSS: Minimal. COMPLICATIONS: None. SPECIMEN: None. DESCRIPTION OF PROCEDURE: The patient was taken to the operating room and laid supine on the operating room table. After general anesthetic was obtained, he was placed up in the lithotomy position. His perineum was prepped and draped in a sterile fashion. In the area of previous Seton placement, a fistula probe was placed and the residual tissue of the fistula was opened on top of the probe to its entirety. The fistula at this point was not transsphincteric. The granulation tissue was cauterized. A small amount of local anesthetic was applied. The patient was en route to Recovery in stable condition. All instrument counts, needle counts, and lap counts are correct. Job ID: [id number]
== END 2018-10-14 10:59 | disposition home or self-care (01) ==
LOC: SDC 06:42
PROVIDERS: ATTEND Surgery
PROC: 0H88XZZ Division of Buttock Skin, External Approach (ICD-10-PCS; principal; 2018-10-14)
DX: K60.3 Anal fistula (principal); F90.9 Attention-deficit hyperactivity disorder, unspecified type; F41.9 Anxiety disorder, unspecified; F32.9 Major depressive disorder, single episode, unspecified; I11.9 Hypertensive heart disease without heart failure; E78.5 Hyperlipidemia, unspecified; E11.51 Type 2 diabetes mellitus with diabetic peripheral angiopathy without gangrene; Z86.73 Personal history of transient ischemic attack (TIA), and cerebral infarction without residual deficits; Z79.84 Long term (current) use of oral hypoglycemic drugs; Z79.899 Other long term (current) drug therapy; Z88.8 Allergy status to other drugs, medicaments and biological substances; Z99.89 Dependence on other enabling machines and devices
CPT/HCPCS: 36416; J0670; J2001; J2704; J3010

== ENCOUNTER 2019-01-06 11:50 | Outpatient (CLI) | payer MEDICARE ==
--- NOTE | 2019-01-06 17:38 | MRI ---
MRI Upper Ext Jt Lt WO Con History: [M 75.102. Injury.] Comparison: None. Findings: Biceps tendon: Mild extra-articular biceps tendinosis. Mild intra-articular biceps tendinos is. Labrum: There is a tear of the anterior inferior labrum extending to the inferior labrum and posterio r inferior labrum. Rotator cuff: There is a 50% bursal surface tear of the anterior 1 cm supraspinous tendon with inters titial delamination. There is extension of fluid into the subacromial/subdeltoid bursa. Mild tendinosis of the infraspinatus tendon. Moderate tendinosis subscapularis. Muscles: No significant muscle atrophy. Mild myotendinous extension of fluid of the supraspinatus. Bones: There is slight contour abnormality of the footprint of the greater tuberosity at the supraspi natus tendon insertion may reflect a small avulsion with associated edema within the donor marrow. Type I acromion. Normal glenoid version. Soft tissues: Moderate joint effusion. Impression: 1. 50% thickness bursal surface tear of the anterior 1 cm fibers supraspinatus tendon with possibly a small osseous avulsion of the footprint. There is associated moderate interstitial delamination. 2. Moderate tendinosis subscapularis. 3. Posterior, inferior, and anterior inferior labral tearing. 4. Moderate subacromial/subdeltoid bursa effusion.
== END 2019-01-06 11:51 | disposition home or self-care (01) ==
LOC: SCSMRI 11:50
PROVIDERS: ATTEND Orthopaedic Surgery
DX: M75.102 Unspecified rotator cuff tear or rupture of left shoulder, not specified as traumatic (principal); M75.82 Other shoulder lesions, left shoulder; M25.412 Effusion, left shoulder